=== PATIENT | female | born 2000 | race Two or more races ===

== ENCOUNTER 2024-10-23 06:31 | Emergency (ER) | payer OTHER, MEDICAID ==
[~2024-10-23] VITALS: Ht 160 cm; Wt 63.6 kg
[2024-10-23 06:45] VITALS: TEMP 98.1
[2024-10-23 08:34] LABS: COVID AG,FIA SOURCE NASAL SWAB
[2024-10-23 09:02] LABS: SARS-COV2 (COVID) ANTIGEN,FIA Negative (Negative)
[2024-10-23 09:04] LABS: INFLUENZA TYPE B NEGATIVE FOR TYPE B (NEGATIVE)
[2024-10-23 09:06] LABS: INFLUENZA TYPE A POSITIVE FOR TYPE A (NEGATIVE)
[2024-10-23 09:45] VITALS: BP 111/75; PULSE 85; RESP 16; O2SAT 97
[2024-10-23] MEDS ORDERED: BENZ-227 PO (09:47)
[2024-10-23] MEDS ORDERED: OSEL75CA45 PO (09:47)
== END 2024-10-23 10:27 | disposition home or self-care (01) ==
LOC: EMS 06:35
DX: J11.1 Influenza due to unidentified influenza virus with other respiratory manifestations (principal); Z20.822 Contact with and (suspected) exposure to COVID-19
CPT/HCPCS: 87804; 99283